=== PATIENT | male | born 1955 | race Caucasian/White ===

== ENCOUNTER 2017-03-18 18:19 | Observation (INO) | payer OTHER ==
--- NOTE | 2017-03-18 20:22 | ED ---
General Adult HPI - General Chief complaint: Extremity Problem,Nontraumatic Stated complaint: left leg swollen/discolored Time Seen by Provider: 03/18/17 20:12 Source: patient, RN notes reviewed Mode of arrival: wheelchair Limitations: no limitations - History of Present Illness Initial comments: Patient is 61-year-old male who presents emergency room today with a chief complaint of left lower swelling and redness. Patient does admit that he noticed this starting 3 days ago some pain in the left hip area. He states that he's noticed some swelling today. States he noticed some redness. He denies any specific injury or trauma. Denies any other complaints or symptoms. Patient denies any recent fever, chills, shortness of breath, chest pain, back pain, abdominal pain, nausea or vomiting, numbness or tingling, dysuria or hematuria, constipation or diarrhea, headaches or visual changes, or any other complaints. - Related Data Home Medications Medication Instructions Recorded Confirmed No Known Home Medications [No 03/18/17 03/18/17 Known Home Medications] Allergies Allergy/AdvReac Type Severity Reaction Status Date / Time No Known Allergies Allergy Verified 03/18/17 20:10 Review of Systems ROS Statement: Those systems with pertinent positive or pertinent negative responses have been documented in the HPI. ROS Other: All systems not noted in ROS Statement are negative. Past Medical History Past Medical History: Thyroid Disorder History of Any Multi-Drug Resistant Organisms: None Reported Past Surgical History: Hernia Repair, Orthopedic Surgery, Tonsillectomy Additional Past Surgical History / Comment(s): partial thyroidectomy Past Psychological History: No Psychological Hx Reported Smoking Status: Current every day smoker Past Alcohol Use History: Daily Past Drug Use History: None Reported General Exam - General Exam Comments Initial Comments: General: The patient is awake and alert, in no distress, and does not appear acutely ill. Eye: Pupils are equal, round and reactive to light, extra-ocular movements are intact. No nystagmus. There is normal conjunctiva bilaterally. No signs of icterus. Ears, nose, mouth and throat: There are moist mucous membranes and no oral lesions. Neck: The neck is supple, there is no tenderness or JVD. Cardiovascular: There is a regular rate and rhythm. No murmur, rub or gallop is appreciated. Respiratory: Lungs are clear to auscultation, respirations are non-labored, breath sounds are equal. No wheezes, stridor, rales, or rhonchi. Musculoskeletal/skin: Normal ROM, no tenderness. Strength 5/5. Sensation intact. Pulses equal bilaterally 2+. Mild redness to the left lower extremity with mild swelling. Neurological: A&O x 3. CN II-XII intact, There are no obvious motor or sensory deficits. Coordination appears grossly intact. Speech is normal. Psychiatric: Cooperative, appropriate mood & affect, normal judgment. Limitations: no limitations Course Vital Signs 03/18/17 03/18/17 18:29 21:27 Temperature 98.2 F Pulse Rate 96 85 Respiratory 18 18 Rate Blood Pressure 114/77 123/80 O2 Sat by Pulse 96 97 Oximetry Medical Decision Making - Medical Decision Making Patient reexamined at this time shows no signs of distress. Ultrasound POSITIVE FOR DVT. Case discussed with [facility] hospitalist who will start patient on Lovenox. - Lab Data Result diagrams: 03/18/17 20:30 03/18/17 20:30 Lab Results 03/18/17 03/18/17 Range/Units 20:30 20:30 WBC 8.0 (3.8-10.6) k/uL RBC 4.91 (4.30-5.90) m/uL Hgb 16.3 (13.0-17.5) gm/dL Hct 47.8 (39.0-53.0) % MCV 97.2 (80.0-100.0) fL MCH 33.3 (25.0-35.0) pg MCHC 34.2 (31.0-37.0) g/dL RDW 13.6 (11.5-15.5) % Plt Count 224 (150-450) k/uL Neutrophils % 66 % Lymphocytes % 21 % Monocytes % 4 % Eosinophils % 6 % Basophils % 0 % Neutrophils # 5.3 (1.3-7.7) k/uL Lymphocytes # 1.7 (1.0-4.8) k/uL Monocytes # 0.4 (0-1.0) k/uL Eosinophils # 0.5 (0-0.7) k/uL Basophils # 0.0 (0-0.2) k/uL Sodium 140 (137-145) mmol/L Potassium 4.0 (3.5-5.1) mmol/L Chloride 107 (98-107) mmol/L Carbon Dioxide 23 (22-30) mmol/L Anion Gap 10 mmol/L BUN 22 H (9-20) mg/dL Creatinine 1.31 H (0.66-1.25) mg/dL Est GFR (MDRD) Af Amer >60 (>60 ml/min/1.73 sqM) Est GFR (MDRD) Non-Af 56 (>60 ml/min/1.73 sqM) Glucose 153 H (74-99) mg/dL Calcium 9.4 (8.4-10.2) mg/dL Total Bilirubin 0.7 (0.2-1.3) mg/dL AST 24 (17-59) U/L ALT 37 (21-72) U/L Alkaline Phosphatase 87 (38-126) U/L Total Protein 6.8 (6.3-8.2) g/dL Albumin 3.9 (3.5-5.0) g/dL Disposition Clinical Impression: DVT (deep venous thrombosis) Disposition: ADMITTED IP TO THIS [facility] Condition: Stable Referrals: Nonstaff,Physician [Primary Care Provider] - 1-2 days Time of Disposition: 21:45
[2017-03-18 20:41] LABS: Basophils % (A) 0 %; CH 33.6; CHCM 34.8; Eosinophils # (A) 0.5 k/uL (0-0.7); Eosinophils % (A) 6 %; HCT 47.8 % (39.0-53.0); HDW 3.02; HGB 16.3 gm/dL (13.0-17.5); Luc # (Auto) 0.13; Luc % (Auto) 2; Lymphocytes # (A) 1.7 k/uL (1.0-4.8); Lymphocytes % (A) 21 %; MCH 33.3 pg (25.0-35.0); MCHC 34.2 g/dL (31.0-37.0); MCV 97.2 fL (80.0-100.0); Mean Platelet Volume 6.5; Monocytes # (A) 0.4 k/uL (0-1.0); Monocytes % (A) 4 %; Neutrophils # (A) 5.3 k/uL (1.3-7.7); Neutrophils % (A) 66 %; RBC 4.91 m/uL (4.30-5.90); RDW 13.6 % (11.5-15.5); WBC (Perox) 7.67
[2017-03-18 21:00] LABS: ALT 37 U/L (21-72); AST 24 U/L (17-59); Alkaline Phosphatase 87 U/L (38-126); Anion Gap 10 mmol/L; Blood Urea Nitrogen 22 mg/dL (9-20); Calcium 9.4 mg/dL (8.4-10.2); Carbon Dioxide 23 mmol/L (22-30); Chloride 107 mmol/L (98-107); Glucose 153 mg/dL (74-99); Non-African American GFR(MDRD) 56 (>60 ml/min/1.73 sqM); Sodium 140 mmol/L (137-145); Total Bilirubin 0.7 mg/dL (0.2-1.3); Total Protein 6.8 g/dL (6.3-8.2)
--- NOTE | 2017-03-18 21:17 | US ---
EXAMINATION TYPE: US venous doppler duplex LE LT DATE OF EXAM: 03/18/2017 9:00 PM COMPARISON: NONE CLINICAL HISTORY: Pain. Left leg edema SIDE PERFORMED: TECHNIQUE: The lower extremity deep venous system is examined utilizing real time linear array sonog chaparrita with graded compression, doppler sonography and color-flow sonography. VESSELS IMAGED: External Iliac Vein (EIV) Common Femoral Vein Deep Femoral Vein Greater Saphenous Vein * Femoral Vein Popliteal Vein Small Saphenous Vein * Proximal Calf Veins (* superficial vessels) Left Leg: Positive for DVT Positive DVT left leg Greater Saphenous vein, Common Femoral vein, Femoral vein and Popliteal vein. IMPRESSION: There is deep venous thrombosis in the left leg involving the femoral and popliteal vein. This appears to be acute thrombosis.
[2017-03-18] MEDS ORDERED: HEPARIN SODIUM,PORCINE 5,000 UNIT/ML 1 ML VIAL IV STA (22:20)
[2017-03-18] MEDS: HEPARIN SODIUM,PORCINE/D5W PMX 25,000 UNIT in DEXTROSE/WATER 1 500ML.BAG IV SCH (22:44)
[2017-03-18] MEDS ORDERED: ACETAMINOPHEN TAB 325 MG TAB PO PRN (23:12)
--- NOTE | 2017-03-18 23:29 | P.HPIM ---
History of Present Illness H&P Date: 03/18/17 Chief Complaint: Left groin and hip and leg pain The patient is a 61-year-old male with a past history of smoking who presents to the ER with a significant other by private vehicle complaining of left groin and hip and posterior leg pain for the last 2 days described as moderate crampy throbbing radiating from the groin to the posterior leg and popliteal area with associated redness of the left lower extremity, he he denies any subjective fevers chills or night sweats shortness of breath or cough and denies any posterior calf pain. He denies any prolonged travel greater than 6 hours, denies any recent trauma or fractures. He does report a history of a younger brother who is approximately a year younger that had possible clots and subsequent thrombophlebitis. In the ER he had a left lower extremity ultrasound which was consistent with a l left greater saphenous , eft common femoral, femoral and popliteal vein DVT, he was subsequently recommended for admission and started on heparin in the ER. Creatinine was elevated at 1.33 Review of Systems All other 14 point review of systems negative except per HPI Past Medical History Past Medical History: Thyroid Disorder History of Any Multi-Drug Resistant Organisms: None Reported Past Surgical History: Hernia Repair, Orthopedic Surgery, Tonsillectomy Additional Past Surgical History / Comment(s): partial thyroidectomy Past Psychological History: No Psychological Hx Reported Smoking Status: Current every day smoker Past Alcohol Use History: Daily Past Drug Use History: None Reported Medications and Allergies Home Medications Medication Instructions Recorded Confirmed Type No Known Home Medications [No 03/18/17 03/18/17 History Known Home Medications] Allergies Allergy/AdvReac Type Severity Reaction Status Date / Time No Known Allergies Allergy Verified 03/18/17 20:10 Physical Exam Vitals: Vital Signs Temp Pulse Resp BP Pulse Ox 03/18/17 22:47 80 18 131/83 97 03/18/17 21:27 85 18 123/80 97 03/18/17 18:29 98.2 F 96 18 114/77 96 Intake and Output 03/18/17 03/18/17 03/19/17 14:59 22:59 06:59 Other: Weight 90.718 kg Patient Weight 03/19/17 06:59 Weight 90.718 kg Constitutional: No acute distress, conversant, pleasant Eyes: Anicteric sclerae, moist conjunctiva, no lid-lag, PERRLA ENMT: NC/AT,Oropharynx clear, no erythema, exudates Neck:Supple, FROM, no masses, or JVD, No carotid bruits; No thyromegaly Lungs: Clear to auscultation, Clear to percussion, Normal respiratory effort, no accessory muscle use Cardiovascular: Heart regular in rate and rhythm, No murmurs, gallops, or rubs no peripheral edema Abdominal: Soft Nontender, nom distended, no guarding, no rebound or rigidity, Normoactive bowel sounds No hepatomegaly, No splenomegaly, No palpable mass No abdominal wall hernia noted Skin: Normal temperature, tone, texture, turgor, No induration No subcutaneous nodules, No rash, lesions, No ulcers Extremities:No digital cyanosis No clubbing, Pedal pulses intact and symmetrical Radial pulses intact and symmetrical Normal gait and station, posterior thigh and groin pain on on active movement, with noted mild erythema of the left lower extremity. Psychiatric: Alert and oriented to person, place and time, Appropriate affect Intact judgement Neuro: Muscles Strength 5/5 in all 4 extremities, Sensation to light touch grossly present throughout, Cranial nerves II-XII grossly intact. No focal sensory deficits Results CBC & Chem 7: 03/18/17 20:30 03/18/17 20:30 Labs: Abnormal Lab Results - Last 24 Hours (Table) 03/18/17 Range/Units 20:30 BUN 22 H (9-20) mg/dL Creatinine 1.31 H (0.66-1.25) mg/dL Glucose 153 H (74-99) mg/dL Assessment and Plan (1) DVT (deep venous thrombosis) Status: Acute (2) MADONNA (acute kidney injury) Status: Acute (3) Smoking Status: Acute Plan: The patient is placed on observation anticipated less than two midnight stay with new onset left lower extremity DVT, given his history we'll order hypercoagulable workup with protein C, protein S, antithrombin III and factor V 5 Leyden deficiency. We'll continue the heparin drip until the patient is transitioned to oral anticoagulation tomorrow. Continue to follow heparin protocol. Initiated on IV fluid for possible MADONNA recheck Creatinine in the am We'll continue to follow his clinical course Time with Patient: Greater than 30
[2017-03-18] MEDS ORDERED: SODIUM CHLORIDE 0.9% 1,000 ML IV ONE (23:33)
[2017-03-19 00:14] VITALS: BMI 31.3
[2017-03-19] MEDS: NICOTINE 21MG/24HR PATCH TRANSDERM SCH ×2 (01:16→08:25)
[2017-03-19] MEDS: SODIUM CHLORIDE 0.9% 1,000 ML IV SCH ×3 (01:16→21:07)
[2017-03-19 07:06] LABS: Basophils % (A) 1 %; CH 34.6; CHCM 35.2; Eosinophils # (A) 0.5 k/uL (0-0.7); Eosinophils % (A) 7 %; HCT 46.8 % (39.0-53.0); HGB 15.6 gm/dL (13.0-17.5); Luc % (Auto) 1; Lymphocytes # (A) 1.8 k/uL (1.0-4.8); Lymphocytes % (A) 24 %; MCHC 33.4 g/dL (31.0-37.0); MCV 98.8 fL (80.0-100.0); Mean Platelet Volume 7.2; Monocytes # (A) 0.4 k/uL (0-1.0); Monocytes % (A) 5 %; Neutrophils # (A) 4.6 k/uL (1.3-7.7); Neutrophils % (A) 62 %; RBC 4.74 m/uL (4.30-5.90); RDW 14.4 % (11.5-15.5); WBC 7.4 k/uL (3.8-10.6); WBC (Perox) 7.15
[2017-03-19 07:08] LABS: INR 1.1 (<1.2); Prothrombin Time 11.4 sec (9.0-12.0)
[2017-03-19 07:17] LABS: AST 36 U/L (17-59); Alkaline Phosphatase 69 U/L (38-126); Anion Gap 10 mmol/L; Blood Urea Nitrogen 19 mg/dL (9-20); Calcium 8.9 mg/dL (8.4-10.2); Carbon Dioxide 25 mmol/L (22-30); Chloride 109 mmol/L (98-107); Glucose 109 mg/dL (74-99); Non-African American GFR(MDRD) 58 (>60 ml/min/1.73 sqM); Sodium 144 mmol/L (137-145); Total Protein 6.7 g/dL (6.3-8.2)
[2017-03-19 07:46] LABS: ALT 32 U/L (21-72); Potassium 4.8 mmol/L (3.5-5.1)
[2017-03-19] MEDS: PANTOPRAZOLE 40 MG TABLET PO SCH (08:25)
[2017-03-19] MEDS: HEPARIN SODIUM,PORCINE/D5W PMX 25,000 UNIT in DEXTROSE/WATER 1 500ML.BAG IV SCH (14:30)
[2017-03-19] MEDS: oxyCODONE-APAP 5-325MG 1 EACH TAB PO PRN (15:03)
[2017-03-19] MEDS ORDERED: RIVAROXABAN 15 MG TAB PO STA (18:35)
--- NOTE | 2017-03-19 18:41 | P.DS ---
Providers Date of admission: 03/18/17 23:12 Expected date of discharge: 03/19/17 Attending physician: Roger Floyd MD Consults: 03/19/17 09:28 Consult Physician Routine Consulting Provider: Jomar Nelson Consult Reason/Comments: left DVT Do you want consulting provider notified?: Yes Dr Omar Summers Left DVT , unprovoked Consider May Grijalva Syndrome Primary care physician: Physician Nonstaff - Discharge Diagnosis(es) (1) DVT (deep venous thrombosis) Current Visit: Yes Status: Acute Hospital Course: Admitted for painful swelling of the left lower extremities from the groin and below for 3 days before admission. Venous duplex study showed an acute deep venous thrombosis involving the left leg. Started on IV heparin and switched to xarelto. No symptoms to suggest pulmonary embolism vital signs were stable and patient was discharged on oral anticoagulation with Xarelto Vascular surgery consult Dr. Loi rubin was obtained to assure op f/u and r/ o May Grijalva syndrome. And cleared the patient for discharge Pertinent Studies: Venous duplex study of the left lower extremity showed a fresh blood clot involving the left common femoral vein in the femoral vein and greater saphenous vein and popliteal veins Procedures: None Patient Condition at Discharge: Stable Plan - Discharge Summary New Discharge Prescriptions: No Action No Known Home Medications [No Known Home Medications] Discharge Medication List No Known Home Medications [No Known Home Medications] 03/18/17 [History] Follow up Appointment(s)/Referral(s): Nonstaff,Physician [Primary Care Provider] - 1-2 days Jomar Nelson MD [STAFF PHYSICIAN] - 4 Weeks Patient Instructions/Handouts: Deep Venous Thrombosis (DC) Activity/Diet/Wound Care/Special Instructions: Off work till Friday No driving using left leg Return to ER if acute SOB or syncope or chest pains Care Plan Goals (MU): anticoagulation with Xarelto for 3-6 months Discharge Disposition: HOME SELF-CARE Pending Studies Pending Results: Hypercoagulable studies results done for unprovoked DVT
--- NOTE | 2017-03-19 20:51 | CONS ---
CONSULTATION This gentleman is a 61-year-old white male who has been admitted with deep vein thrombosis of the left leg. The patient had sudden onset of pain a few days ago and came to the emergency room. An ultrasound of the leg showed a femoral-popliteal DVT, acute in nature. No history of shortness of breath. No chest pain. The patient has been admitted and patient is on anticoagulation. PAST HISTORY: The patient has history of thyroid disorder. SURGICAL HISTORY: Patient had a hernia repair and left knee surgery done in the past. EXAMINATION: Patient was seen in his room. NECK: Supple. Trachea central. CHEST: Clear to auscultation. First and second heart sounds are normal. ABDOMEN: Soft, nontender. Femoral pulses are palpable. Patient has swelling of the left lower extremity. No vascular compromise noted. RECOMMENDATION: Continue with anticoagulation, DRAKE cummings knee-high. Will follow with you. If there is any contraindication, will consider placing a filter. The patient is a hypercoagulation , since patient has a family history of DVT. If the patient goes home. I will follow in my office in 2 weeks. MMODL / IJN: [id number] /
[2017-03-20] MEDS: SODIUM CHLORIDE 0.9% 1,000 ML IV SCH ×3 (01:49→17:40)
[2017-03-20 02:29] VITALS: RESP 16
[2017-03-20] MEDS: HEPARIN SODIUM,PORCINE/D5W PMX 25,000 UNIT in DEXTROSE/WATER 1 500ML.BAG IV SCH (05:19)
[2017-03-20] MEDS: PANTOPRAZOLE 40 MG TABLET PO SCH (08:10)
[2017-03-20] MEDS: RIVAROXABAN 15 MG TAB PO SCH ×2 (08:10→17:35)
[2017-03-20] MEDS: NICOTINE 21MG/24HR PATCH TRANSDERM SCH (08:10)
[2017-03-20 12:19] LABS: Protein C (Activity) 90 % (70 - 130)
[2017-03-20 12:20] LABS: Protein S (Activity) 146 % (65 - 140)
[2017-03-20 16:02] VITALS: BP 132/90; PULSE 96; TEMP 97.2
--- NOTE | 2017-03-20 16:22 | PN ---
PROGRESS NOTE This gentleman came with swelling of the left lower extremity. Patient has a DVT of the femoral popliteal left leg. No shortness of breath or chest pain. The patient was on heparin and switched to Xarelto by Internal Medicine. On examination today, femoral and dorsal pedis pulses present. Patient has less swelling than yesterday. The patient has DRAKE hose. Plan is to continue the DRAKE hose and Xarelto. I will see him in my office on . MMROMAN / MYRAN: [id number] /
[2017-03-20] MEDS: oxyCODONE-APAP 5-325MG 1 EACH TAB PO PRN (17:35)
--- NOTE | 2017-03-20 19:05 | P.PN ---
Subjective Principal diagnosis: left leg DVT Admitted for left le dvt vasccular sx consult appreciated he kept patient last night and leg swelling is less on elastic stocking No chest pain or sob Systemic review : Negative Objective - Vital Signs Vital signs: Vital Signs Temp 97.2 F L 03/20/17 15:00 Pulse 96 03/20/17 15:00 Resp 16 03/20/17 15:00 BP 132/90 03/20/17 15:00 Pulse Ox 96 03/20/17 15:00 Intake & Output 03/19/17 03/20/17 03/20/17 18:59 06:59 18:59 Intake Total 4971.747 3952.764 Balance 2294.364 2044.764 Weight 90.718 kg Intake: IV 500 960 Sodium Chloride 0.9% 1, 500 960 000 ml @ 120 mls/hr IV . Q8H20M MAY Rx#:[id number] Intake, IV Titration 500.000 483.764 Amount Heparin Sodium,Porcine/ 500.000 483.764 D5w Pmx 25,000 unit In Dextrose/Water 1 500ml. bag @ 18 UNITS/KG/HR 32. 65 mls/hr IV .[id number] MAY Rx#:[id number] Oral 180 400 Other: Voiding Method Toilet # Voids 3 3 3 - Constitutional General appearance: Present: cooperative, no acute distress - EENT Eyes: Present: anicteric sclerae, PERRLA ENT: Present: NA/AT, normal oropharynx Ears: bilateral: normal - Neck Neck: Present: normal ROM. Absent: lymphadenopathy, other, rigidity, stridor, thyromegaly Carotids: bilateral: upstroke normal, bruit absent Thyroid: negative: normal size, enlarged, firm, nodule - Respiratory Respiratory: bilateral: CTA, negative: diminished, dullness, rales, rhonchi, wheezing - Cardiovascular Rhythm: regular Heart sounds: normal: S1, S2 Abnormal Heart Sounds: Absent: systolic murmur, diastolic murmur, rub, S3 Gallop , S4 Gallop, click, other - Gastrointestinal General gastrointestinal: Present: normal bowel sounds, soft. Absent: absent bowel sounds, decreased bowel sounds, distended, hepatomegaly, hyperactive bowel sounds, organomegaly, rigid, scaphoid, splenomegaly, tenderness, umbilical hernia, ventral hernia - Integumentary Integumentary Comment(s): left leg swelling - Neurologic Neurologic: Present: CNII-XII intact, focal deficits - Musculoskeletal Musculoskeletal: Present: gait normal, strength equal bilaterally - Psychiatric Psychiatric: Present: A&O x's 3, appropriate affect, intact judgment & insight - Labs CBC & Chem 7: 03/19/17 06:47 03/19/17 06:47 Labs: Abnormal Lab Results - Last 24 Hours (Table) 03/19/17 03/20/17 Range/Units 06:47 06:36 APTT 52.2 H (22.0-30.0) sec Protein S Activity 146 H (65 - 140) % Microbiology - Last 24 Hours (Table) 03/18/17 20:30 Blood Culture - Preliminary Blood No Growth after 24 hours Assessment and Plan (1) Left leg DVT Narrative/Plan: leg swelling no embolization elastic stocking xoralto therapy VBascular sx consult and f/u ok for discharge today Status: Acute Plan: discharge today Time with Patient: Less than 30
== END 2017-03-20 18:00 | disposition home or self-care (01) ==
LOC: EC 18:19 → 3SUR 23:12
PROVIDERS: ADMIT Family Medicine; ATTEND Family Medicine
DX: I82.432 Acute embolism and thrombosis of left popliteal vein (principal); N17.9 Acute kidney failure, unspecified; E89.0 Postprocedural hypothyroidism; I82.412 Acute embolism and thrombosis of left femoral vein; F17.200 Nicotine dependence, unspecified, uncomplicated
CPT/HCPCS: 96376 ×2; 96366; 96365; 99284; 36415; 85303; 85306; 80053 ×2; 81241; 85025 ×2; 85610; 85730 ×2; 87040; 85300; 93971; G0378 ×3; S4990 ×2; J1644 ×4; 96361

== ENCOUNTER → 2023-11-21 | Outpatient (CLI) | payer MEDICARE ==
--- NOTE | 2023-11-21 14:09 | CTL ---
EXAMINATION TYPE: CT Low Dose Lung DATE OF EXAM ORDERED: 11/21/2023 History: Lung cancer screening CT DLP: 79.[address] CTDI: 2.2 mGy Automated exposure control for dose reduction was used. Comparison: None TECHNIQUE: Low dose computed tomography scan was performed through the chest at 1 mm thick sections and reconstructed images in multiple planes at 1 mm and [address] DIAGNOSTIC QUALITY: Satisfactory FINDINGS: There is no suspicious lung mass or nodule The lungs are clear and there is no abnormal consolidation or interstitial density. There is no mediastinal, hilar or axillary adenopathy. There is no pleural effusion, pleural thickening or pneumothorax. No focal osseous lesions are seen. Limited scans the upper abdomen reveals no gross adenopathy. IMPRESSION: 1. BI-RADS Category 1 negative. Continue routine screening at yearly intervals. 2. No acute cardiopulmonary disease.
== END | disposition home or self-care (01) ==
LOC: RADCTMAIN 13:19
PROVIDERS: ATTEND Family Medicine
DX: Z12.2 Encounter for screening for malignant neoplasm of respiratory organs (principal); F17.210 Nicotine dependence, cigarettes, uncomplicated
CPT/HCPCS: 71271

== ENCOUNTER 2024-03-11 17:04 | Emergency (ER) | payer MEDICARE ==
[2024-03-11 17:08] VITALS: RESP 17
--- NOTE | 2024-03-11 17:25 | ED ---
Skin/Abscess/FB HPI - General Source: patient, RN notes reviewed Mode of arrival: ambulatory Limitations: no limitations <Kimi Delatorre - Last Filed: 03/11/24 20:08> <Rubio España - Last Filed: 03/11/24 20:30> - General Chief complaint: Skin/Abscess/Foreign Body Stated complaint: infection Time Seen by Provider: 03/11/24 17:22 - History of Present Illness Initial comments: 68-year-old male with history of cirrhosis presenting to the ER with chief complaint of right leg redness x 1 day. States over the past day he has been having tenderness and redness on his right lower rivas. Denies trauma or injury to the area. He is tolerating orals well. He has a history of a DVT in his left leg, however is no longer on blood thinners. Denies other significant medical history. (Kimi Delatorre) - Related Data Home Medications Medication Instructions Recorded Confirmed Naproxen Sodium [Aleve] 220 mg PO DAILY PRN 03/11/24 03/11/24 Previous Rx's Medication Instructions Recorded Cephalexin [Keflex] 500 mg PO Q6HR #40 cap 03/11/24 Sulfamethox-Tmp 800-160Mg [Bactrim 1 each PO Q12HR #20 tab 03/11/24 Ds] Allergies Allergy/AdvReac Type Severity Reaction Status Date / Time No Known Allergies Allergy Verified 03/11/24 20:04 Review of Systems ROS Other: All systems not noted in ROS Statement are negative. <Kimi Delatorre - Last Filed: 03/11/24 20:08> ROS Other: All systems not noted in ROS Statement are negative. <Rubio España - Last Filed: 03/11/24 20:30> ROS Statement: Those systems with pertinent positive or pertinent negative responses have been documented in the HPI. Past Medical History Past Medical History: Deep Vein Thrombosis (DVT), Pneumonia, Thyroid Disorder History of Any Multi-Drug Resistant Organisms: None Reported Past Surgical History: Hernia Repair, Orthopedic Surgery, Tonsillectomy Additional Past Surgical History / Comment(s): partial thyroidectomy, knee surgery Past Anesthesia/Blood Transfusion Reactions: No Reported Reaction Past Psychological History: No Psychological Hx Reported Smoking Status: Current every day smoker Past Alcohol Use History: Daily Past Drug Use History: None Reported - Past Family History Father Family Medical History: Cancer Mother Family Medical History: COPD <Kimi Delatorre - Last Filed: 03/11/24 20:08> General Exam Limitations: no limitations General appearance: alert, in no apparent distress Head exam: Present: atraumatic, normocephalic, normal inspection Eye exam: Present: normal appearance, PERRL, EOMI. Absent: scleral icterus, conjunctival injection, periorbital swelling Respiratory exam: Present: normal lung sounds bilaterally. Absent: respiratory distress, wheezes, rales, rhonchi, stridor Cardiovascular Exam: Present: regular rate, normal rhythm, normal heart sounds. Absent: systolic murmur, diastolic murmur, rubs, gallop, clicks Right Knee exam: Present: normal inspection, full ROM. Absent: tenderness, swelling Lower Leg exam: Present: full ROM, tenderness, swelling, erythema. Absent: normal inspection (Diffuse erythema and tenderness on anterior right lower leg with mild edema, no purulence. DP pulses and sensation intact. No calf tenderness), abrasion, laceration, deformity Ankle exam: Present: normal inspection, full ROM, swelling (Mild edema). Abs ent: tenderness Foot/Toe exam: Present: normal inspection, full ROM. Absent: tenderness, swelling Neurovascular tendon exam: Present: no vascular compromise. Absent: pulse deficit, abnormal cap refill, sensory deficit Neurological exam: Present: alert, oriented X3 Psychiatric exam: Present: normal affect, normal mood Skin exam: Present: warm, dry, intact, normal color. Absent: rash <Kimi Delatorre - Last Filed: 03/11/24 20:08> Course Vital Signs 03/11/24 17:06 Temperature 98.2 F Pulse Rate 99 Respiratory 17 Rate Blood Pressure 127/81 O2 Sat by Pulse 99 Oximetry Medical Decision Making - Lab Data Result diagrams: 03/11/24 17:48 03/11/24 17:48 <Malorie Delatorrena - Last Filed: 03/11/24 20:08> - Lab Data Result diagrams: 03/11/24 17:48 03/11/24 17:48 <Rubio España - Last Filed: 03/11/24 20:30> - Medical Decision Making Was pt. sent in by a medical professional or institution (, PA, MINIATURE SET BUILDER, urgent care, hospital, or residential...) When possible be specific @ -No Did you speak to anyone other than the patient for history (EMS, parent, family, police, friend...)? What history was obtained from this source @ -Patient's supplemented history Did you review nursing and triage notes (agree or disagree)? Why? @ -I reviewed and agree with nursing and triage notes Were old charts reviewed (outside hosp., previous admission, EMS record, old EKG, old radiological studies, urgent care reports/EKG's, residential records)? Report findings @ -No old charts were reviewed Differential Diagnosis (chest pain, altered mental status, abdominal pain women, abdominal pain men, vaginal bleeding, weakness, fever, dyspnea, syncope, headache, dizziness, GI bleed, back pain, seizure, CVA, palpatations, mental health, musculoskeletal)? @ -Differential Musculoskeletal Muscular strain, contusion, ligament sprain, fracture, arthritis, septic arthritis, bursitis, cellulitis, muscle spasm, nerve compression, DVT, arterial occlusion, herpes zoster, electrolyte abnormality, tumor.... This is not meant to be in all inclusive list EKG interpreted by me (3pts min.). @ -None X-rays interpreted by me (1pt min.). @ -None done CT interpreted by me (1pt min.). @ -None done U/S interpreted by me (1pt. min.). @ -Ultrasound right lower extremity negative for DVT What testing was considered but not performed or refused? (CT, X-rays, U/S, labs)? Why? @ -None What meds were considered but not given or refused? Why? @ -None Did you discuss the management of the patient with other professionals (professionals i.e. , PA, MINIATURE SET BUILDER, lab, RT, psych nurse, social services specialist, cloth doffer, teacher, loss prevention officer, case liner)? Give summary @ -No Was smoking cessation discussed for >3mins.? @ -No Was critical care preformed (if so, how long)? @ -No Were there social determinants of health that impacted care today? How? (Homelessness, low income, unemployed, alcoholism, drug addiction, tr ansportation, low edu. Level, literacy, decrease access to med. care, [place] [facility], rehab)? @ -No Was there de-escalation of care discussed even if they declined (Discuss DNR or withdrawal of care, Hospice)? DNR status @ -No What co-morbidities impacted this encounter? (DM, HTN, Smoking, COPD, CAD, Cancer, CVA, ARF, Chemo, Hep., AIDS, mental health diagnosis, sleep apnea, morbid obesity)? @ -None Was patient admitted / discharged? Hospital course, mention meds given and route, prescriptions, significant lab abnormalities, going to OR and other pertinent info. @ -Patient was discharged. This is a 68-year-old male presenting with right lower extremity redness x 1 day. Patient is afebrile, heart rate 99 bpm. On physical examination, there is diffuse erythema and warmth on anterior lower right leg with no purulence. Neurovascularly intact. Ultrasound right lower extremity was negative for DVT. CBC, CMP, lactic, CRP remarkable for CRP 34.9. White blood cell count is 10. Findings discussed with patient and . I offered admission for IV antibiotics, however patient prefers discharge with oral antibiotics with strict return precautions. I believe this is reasonable at this time as patient is afebrile and white blood cell count is within normal limits. Strict return precautions were discussed with patient as well as supportive care. Prescribed Keflex and Bactrim. Case was discussed with my ED attending Dr. España. Patient discharged in stable condition. Undiagnosed new problem with uncertain prognosis? @ -No Drug Therapy requiring intensive monitoring for toxicity (Heparin, Nitro, Insulin, Cardizem)? @ -No Were any procedures done? @ -No Diagnosis/symptom? @ -Cellulitis right lower extremity Acute, or Chronic, or Acute on Chronic? @ -Acute Uncomplicated (without systemic symptoms) or Complicated (systemic symptoms)? @ -Uncomplicated Side effects of treatment? @ -No Exacerbation, Progression, or Severe Exacerbation? @ -No Poses a threat to life or bodily function? How? (Chest pain, [place], [place], pneumonia, PE, COPD, DKA, ARF, appy, cholecystitis, CVA, Diverticulitis, Homicidal, Suicidal, threat to staff... and all critical care pts) @ -None at this time (Kimi Delatorre) - Lab Data Lab Results 03/11/24 03/11/24 03/11/24 Range/Units 17:48 17:48 17:48 WBC 10.0 (3.8-10.6) k/uL RBC 4.92 (4.30-5.90) m/uL Hgb 16.8 (13.0-17.5) gm/dL Hct 49.4 (39.0-53.0) % MCV 100.4 H (80.0-100.0) fL MCH 34.1 (25.0-35.0) pg MCHC 34.0 (31.0-37.0) g/dL RDW 12.7 (11.5-15.5) % Plt Count 178 (150-450) k/uL MPV 7.1 Neutrophils % 92 % Lymphocytes % 5 % Monocytes % 2 % Eosinophils % 0 % Basophils % 0 % Neutrophils # 9.2 H (1.3-7.7) k/uL Lymphocytes # 0.5 L (1.0-4.8) k/uL Monocytes # 0.2 (0-1.0) k/uL Eosinophils # 0.0 (0-0.7) k/uL Basophils # 0.0 (0-0.2) k/uL Sodium 136 L (137-145) mmol/L Potassium 4.2 (3.5-5.1) mmol/L Chloride 101 (98-107) mmol/L Carbon Dioxide 30 (22-30) mmol/L Anion Gap 5 mmol/L BUN 32 H (9-20) mg/dL Creatinine 1.62 H (0.66-1.25) mg/dL Est GFR (CKD-EPI)AfAm 50 (>60 ml/min/1.73 sqM) Est GFR (CKD-EPI)NonAf 43 (>60 ml/min/1.73 sqM) Glucose 117 H (74-99) mg/dL Plasma Lactic Acid Shukri 1.2 (0.7-2.0) mmol/L Calcium 9.2 (8.4-10.2) mg/dL Total Bilirubin 1.4 H (0.2-1.3) mg/dL AST 35 (17-59) U/L ALT 35 (4-49) U/L Alkaline Phosphatase 60 (38-126) U/L C-Reactive Protein 34.9 H (<1.0) mg/dL Total Protein 6.9 (6.3-8.2) g/dL Albumin 4.3 (3.5-5.0) g/dL Disposition Is patient prescribed a controlled substance at d/c from ED?: No Time of Disposition: 20:05 <Kimi Delatorre - Last Filed: 03/11/24 20:08> <Rubio España - Last Filed: 03/11/24 20:30> Clinical Impression: Cellulitis of right lower leg Disposition: HOME SELF-CARE Condition: Stable Instructions (If sedation given, give patient instructions): Cellulitis (ED) Additional Instructions: Take Keflex and Bactrim as prescribed. Follow-up with PCP in 3 to 5 days for reevaluation. Please return to the Emergency Department if symptoms worsen or any other concerns. Prescriptions: Sulfamethox-Tmp 800-160Mg [Bactrim Ds] 1 each PO Q12HR #20 tab Cephalexin [Keflex] 500 mg PO Q6HR #40 cap Referrals: Chris Velez MD [Primary Care Provider] - 1-2 days
[2024-03-11 18:02] LABS: Basophils % (A) 0 %; Eosinophils % (A) 0 %; HCT 49.4 % (39.0-53.0); HGB 16.8 gm/dL (13.0-17.5); Lymphocytes # (A) 0.5 k/uL (1.0-4.8); Lymphocytes % (A) 5 %; MCH 34.1 pg (25.0-35.0); MCV 100.4 fL (80.0-100.0); Mean Platelet Volume 7.1; Monocytes # (A) 0.2 k/uL (0-1.0); Monocytes % (A) 2 %; Neutrophils # (A) 9.2 k/uL (1.3-7.7); Neutrophils % (A) 92 %; Platelet Count 178 k/uL (150-450); RBC 4.92 m/uL (4.30-5.90); RDW 12.7 % (11.5-15.5)
[2024-03-11 18:21] LABS: ALT 35 U/L (4-49); AST 35 U/L (17-59); African American GFR (CKD) 50 (>60 ml/min/1.73 sqM); Albumin 4.3 g/dL (3.5-5.0); Alkaline Phosphatase 60 U/L (38-126); Anion Gap 5 mmol/L; Blood Urea Nitrogen 32 mg/dL (9-20); Calcium 9.2 mg/dL (8.4-10.2); Carbon Dioxide 30 mmol/L (22-30); Chloride 101 mmol/L (98-107); Glucose 117 mg/dL (74-99); Non-African American GFR(CKD) 43 (>60 ml/min/1.73 sqM); Potassium 4.2 mmol/L (3.5-5.1); Sodium 136 mmol/L (137-145); Total Bilirubin 1.4 mg/dL (0.2-1.3); Total Protein 6.9 g/dL (6.3-8.2)
--- NOTE | 2024-03-11 18:25 | US ---
EXAMINATION TYPE: US venous doppler duplex LE RT DATE OF EXAM: 03/11/2024 5:22 PM COMPARISON: NONE CLINICAL INDICATION: Male, 68 years old with history of pain; Patient states redness in right calf, w arm to touch. Hx of DVT in left leg. Not on thinners SIDE PERFORMED: Right TECHNIQUE: The lower extremity deep venous system is examined utilizing real time linear array sonog chaparrita with graded compression, doppler sonography and color-flow sonography. VESSELS IMAGED: Common Femoral Vein Deep Femoral Vein Greater Saphenous Vein * Femoral Vein Popliteal Vein Small Saphenous Vein * Proximal Calf Veins (* superficial vessels) Right Leg: Appears negative for DVT today IMPRESSION: Grayscale, color doppler, spectral doppler imaging performed of the deep veins of the lo wer extremities. There is normal flow, compressibility, vascular waveforms. [facility], , 03/11/2024 6:23 PM
[2024-03-11 19:53] LABS: C Reactive Protein 34.9 mg/dL (<1.0)
[2024-03-11] MEDS: cefTRIAXone IN SWFI 1,000 MG/10 ML SYRINGE IVP STA (20:33)
[2024-03-11 20:51] VITALS: BP 117/75; PULSE 101; TEMP 100.5
== END 2024-03-11 20:51 | disposition home or self-care (01) ==
LOC: EC 17:04
CPT/HCPCS: 36415; 80053; 83605; 85025; 86140; 96374; 99283

== ENCOUNTER 2024-03-15 16:14 | Observation (INO) | payer MEDICARE ==
--- NOTE | 2024-03-15 16:26 | ED ---
Extremity Problem HPI - General Source: patient, RN notes reviewed Mode of arrival: ambulatory Limitations: no limitations <Tran Long - Last Filed: 03/15/24 16:25> <Dannie Obrien - Last Filed: 03/15/24 20:09> - General Stated complaint: leg infection Time Seen by Provider: 03/15/24 16:25 - History of Present Illness Initial comments: Quick note: 68-year-old male presented to ER with a chief complaint of right lower extremity swelling. Patient was seen here on for similar complaint. Patient was started on antibiotics. Patient had ultrasound done at that time which was negative for DVT. He states the pain has mildly improved but swelling is worse. Does report a history of DVTs. Denies any fevers or chills. (Tran Long) Patient dictation was produced using [employer] dictation software. please excuse any grammatical, word or spelling errors. Chief Complaint: 68-year-old male with worsening cellulitis History of Present Illness: Patient 68-year-old male presents to the emergency department 3 to 4 days of cellulitis symptoms. States that his initially symptoms began as pain and redness to the medial side of the foot. Started to spread. Patient was seen here in the emergency department 4 days ago given antibiotics and discharged. States that his symptoms had not improved in fact got worse. Does complain of some chills. The ROS documented in this emergency department record has been reviewed and confirmed by me. Those systems with pertinent positive or negative responses have been documented in the HPI. All other systems are other negative and/or noncontributory. (Dannie Obrien) - Related Data Home Medications Medication Instructions Recorded Confirmed Naproxen Sodium [Aleve] 220 mg PO DAILY PRN 03/11/24 03/11/24 Previous Rx's Medication Instructions Recorded Cephalexin [Keflex] 500 mg PO Q6HR #40 cap 03/11/24 Sulfamethox-Tmp 800-160Mg [Bactrim 1 each PO Q12HR #20 tab 03/11/24 Ds] Allergies Allergy/AdvReac Type Severity Reaction Status Date / Time No Known Allergies Allergy Verified 03/15/24 16:38 Review of Systems ROS Other: All systems not noted in ROS Statement are negative. <Tran Long - Last Filed: 03/15/24 16:25> ROS Other: All systems not noted in ROS Statement are negative. <Dannie Obrien - Last Filed: 03/15/24 20:09> ROS Statement: Those systems with pertinent positive or pertinent negative responses have been documented in the HPI. Past Medical History Past Medical History: Deep Vein Thrombosis (DVT), Pneumonia, Thyroid Disorder History of Any Multi-Drug Resistant Organisms: None Reported Past Surgical History: Hernia Repair, Orthopedic Surgery, Tonsillectomy Additional Past Surgical History / Comment(s): partial thyroidectomy, knee surgery Past Anesthesia/Blood Transfusion Reactions: No Reported Reaction Past Psychological History: No Psychological Hx Reported Smoking Status: Current every day smoker Past Alcohol Use History: Daily Past Drug Use History: None Reported - Past Family History Father Family Medical History: Cancer Mother Family Medical History: COPD <Tran Long - Last Filed: 03/15/24 16:25> General Exam <Tran Long - Last Filed: 03/15/24 16:25> <Dannie Obrien - Last Filed: 03/15/24 20:09> - General Exam Comments Initial Comments: Visual Physical Exam Vital signs reviewed General: Well-appearing, nontoxic, no acute distress. Head: Normocephalic, atraumatic Eyes: PERRLA, EOMI ENT: Airway patent Chest: Nonlabored breathing Skin: No visual rash, normal skin tone Neuro: Alert and oriented 3 Musculoskeletal: No gross abnormalities, erythematous and edematous right lower extremity (Tran Long) General: Well-appearing, nontoxic, no acute distress. Head: Normocephalic, atraumatic Eyes: PERRLA, EOMI ENT: Airway patent Chest: Nonlabored breathing Neuro: Alert and oriented 3 Musculoskeletal: No gross abnormalities Right lower extremity: Circumferential warmth and erythema around the right lower extremity. Erythema is blanching (Dannie Obrien) Course Vital Signs 03/15/24 16:33 Temperature 97.6 F Pulse Rate 90 Respiratory 18 Rate Blood Pressure 119/74 O2 Sat by Pulse 99 Oximetry Medical Decision Making <Tran Long - Last Filed: 03/15/24 16:25> - Lab Data Result diagrams: 03/15/24 17:23 03/15/24 17:23 <Jin Obriensstomasz Bob - Last Filed: 03/15/24 20:09> - Medical Decision Making I performed the quick note portion of this chart. Electronically signed by Tran Long PA-C (Tran Long) Was pt. sent in by a medical professional or institution (KIMO Dickerson, SLUBBER MACHINE OPERATOR, urgent care, hospital, or [place] [facility]...) When possible be specific @ -[No] Did you speak to anyone other than the patient for history (EMS, parent, family, police, friend...)? What history was obtained from this source @ -[No] Did you review nursing and triage notes (agree or disagree)? Why? @ -[I reviewed and agree with nursing and triage notes] Were old charts reviewed (outside hosp., previous admission, EMS record, old EKG, old radiological studies, urgent care reports/EKG's, [place] [facility] records)? Report findings @ -[No old charts were reviewed] Differential Diagnosis (chest pain, altered mental status, abdominal pain women, abdominal pain men, vaginal bleeding, musculoskeletal, weakness, fever, dyspnea, syncope, headache, dizziness, GI bleed, back pain, seizure, CVA, palpatations, mental health)? @ -Cellulitis, abscess, dermatitis EKG interpreted by me (3pts min.). @ -[None done] X-rays interpreted by me (1pt min.). @ -[None done] CT interpreted by me (1pt min.). @ -[None done] U/S interpreted by me (1pt. min.). @ -[None done] What testing was considered but not performed or refused? (CT, X-rays, U/S, labs)? Why? @ -[None] What meds were considered but not given or refused? Why? @ -[None] Was smoking cessation discussed for >3mins.? @ -[No] Were there social determinants of health that impacted care today? How? (Homelessness, low income, unemployed, alcoholism, drug addiction, transportation, low edu. Level, literacy, decrease access to med. care, halfway, rehab)? @ -[No] Was there de-escalation of care discussed even if they declined (Discuss DNR or withdrawal of care, Hospice)? DNR status @ -[No] What co-morbidities impacted this encounter? (DM, HTN, Smoking, COPD, CAD, Cancer, CVA, ARF, Chemo, Hep., AIDS, mental health diagnosis, sleep apnea, morbid obesity)? @ -[None] Was patient admitted / discharged? Hospital course, mention meds given and route, prescriptions, significant lab abnormalities, going to OR and other pertinent info. @ -68-year-old male presents emergency department with worsening right lower extremity cellulitis he was seen in the emergency department 4 days ago was offered admission with IV antibiotic treatment however he preferred discharge. Patient states that he has been on Keflex and his symptoms have not been improving. He does report associated constitutional symptoms.Vital signs upon arrival are within acceptable limits. Laboratory evaluation obtained. No leukocytosis. Labs otherwise unremarkable. Patient started vancomycin. Case discussed with hospitalist for admission. Infectious disease will be consulted Did you discuss the management of the patient with other professionals (professionals i.e. , PA, SLUBBER MACHINE OPERATOR, lab, RT, psych nurse, long term care social worker, criminal defense lawyer, teacher, naval gunfire liaison officer, case filler)? Give summary @ -See above Was critical care preformed (if so, how long)? @ -[No] Undiagnosed new problem with uncertain prognosis? @ -[No] Drug Therapy requiring intensive monitoring for toxicity (Heparin, Nitro, Insulin, Cardizem)? @ -[No] Were any procedures done? @ -[No] Diagnosis/symptom? Acute, or Chronic, or Acute on Chronic? Uncomplicated (without systemic symptoms) or Complicated (systemic symptoms)? @ -Right lower extremity cellulitis failed outpatient treatment Side effects of treatment? @ -[No] Exacerbation, Progression, or Severe Exacerbation? @ -[No] Poses a threat to life or bodily function? How? (Chest pain, [place], [place], pneumonia, PE, COPD, DKA, ARF, appy, cholecystitis, CVA, Diverticulitis, Homicidal, Suicidal, threat to staff... and all critical care pts) @ -Yes (Dannie Obrien) - Lab Data Lab Results 03/15/24 03/15/24 03/15/24 Range/Units 17:23 17:23 17:23 WBC 8.3 (3.8-10.6) k/uL RBC 4.75 (4.30-5.90) m/uL Hgb 15.7 (13.0-17.5) gm/dL Hct 48.1 (39.0-53.0) % MCV 101.2 H (80.0-100.0) fL MCH 33.1 (25.0-35.0) pg MCHC 32.7 (31.0-37.0) g/dL RDW 12.8 (11.5-15.5) % Plt Count 289 (150-450) k/uL MPV 7.4 Neutrophils % 80 % Lymphocytes % 13 % Monocytes % 4 % Eosinophils % 1 % Basophils % 1 % Neutrophils # 6.6 (1.3-7.7) k/uL Lymphocytes # 1.1 (1.0-4.8) k/uL Monocytes # 0.3 (0-1.0) k/uL Eosinophils # 0.1 (0-0.7) k/uL Basophils # 0.0 (0-0.2) k/uL Sodium 140 (137-145) mmol/L Potassium 4.1 (3.5-5.1) mmol/L Chloride 103 (98-107) mmol/L Carbon Dioxide 29 (22-30) mmol/L Anion Gap 8 mmol/L BUN 21 H (9-20) mg/dL Creatinine 1.20 (0.66-1.25) mg/dL Est GFR (CKD-EPI)AfAm 72 (>60 ml/min/1.73 sqM) Est GFR (CKD-EPI)NonAf 62 (>60 ml/min/1.73 sqM) Glucose 125 H (74-99) mg/dL Plasma Lactic Acid Shukri 1.3 (0.7-2.0) mmol/L Calcium 9.2 (8.4-10.2) mg/dL Total Bilirubin 1.3 (0.2-1.3) mg/dL AST 42 (17-59) U/L ALT 56 H (4-49) U/L Alkaline Phosphatase 101 (38-126) U/L Total Protein 7.1 (6.3-8.2) g/dL Albumin 4.2 (3.5-5.0) g/dL Disposition <Tran Long - Last Filed: 03/15/24 16:25> Decision Time: 20:08 <Dannie Obrien Filed: 03/15/24 20:09> Clinical Impression: Cellulitis Disposition: ADMITTED IP TO THIS HOSP Condition: Fair Referrals: Chris Velez MD [Primary Care Provider] - 1-2 days
[2024-03-15 17:39] LABS: Basophils % (A) 1 %; Eosinophils # (A) 0.1 k/uL (0-0.7); Eosinophils % (A) 1 %; HCT 48.1 % (39.0-53.0); HGB 15.7 gm/dL (13.0-17.5); Lymphocytes # (A) 1.1 k/uL (1.0-4.8); Lymphocytes % (A) 13 %; MCH 33.1 pg (25.0-35.0); MCHC 32.7 g/dL (31.0-37.0); MCV 101.2 fL (80.0-100.0); Mean Platelet Volume 7.4; Monocytes # (A) 0.3 k/uL (0-1.0); Monocytes % (A) 4 %; Neutrophils # (A) 6.6 k/uL (1.3-7.7); Neutrophils % (A) 80 %; Platelet Count 289 k/uL (150-450); RBC 4.75 m/uL (4.30-5.90); RDW 12.8 % (11.5-15.5); WBC 8.3 k/uL (3.8-10.6)
[2024-03-15 17:49] LABS: ALT 56 U/L (4-49); AST 42 U/L (17-59); African American GFR (CKD) 72 (>60 ml/min/1.73 sqM); Albumin 4.2 g/dL (3.5-5.0); Alkaline Phosphatase 101 U/L (38-126); Anion Gap 8 mmol/L; Blood Urea Nitrogen 21 mg/dL (9-20); Calcium 9.2 mg/dL (8.4-10.2); Carbon Dioxide 29 mmol/L (22-30); Chloride 103 mmol/L (98-107); Glucose 125 mg/dL (74-99); Non-African American GFR(CKD) 62 (>60 ml/min/1.73 sqM); Potassium 4.1 mmol/L (3.5-5.1); Sodium 140 mmol/L (137-145); Total Bilirubin 1.3 mg/dL (0.2-1.3); Total Protein 7.1 g/dL (6.3-8.2)
[2024-03-15] MEDS ORDERED: VANCOMYCIN IV PER PHARMACY 1 EACH MISC MISCELLANE PRN (20:02)
[2024-03-15] MEDS ORDERED: NALOXONE 0.4 MG/ML 1 ML VIAL IV PRN (20:03)
[2024-03-15] MEDS: VANCOMYCIN 1,500 MG in SODIUM CHLORIDE 0.9% 500 ML 500 ML IVPB STA (20:36)
[2024-03-15] MEDS: SODIUM CHLORIDE 0.9% 1,000 ML IV SCH (20:37)
[2024-03-16] MEDS ORDERED: VANCOMYCIN IV PER PHARMACY 1 EACH MISC MISCELLANE PRN (01:33)
--- NOTE | 2024-03-16 01:34 | P.HPIM ---
History of Present Illness H&P Date: 03/15/24 Patient is a 68-year-old male with no known PMH who presents to the emergency room with complaints of right lower extremity swelling and pain. The patient notes that he works as a industrial cleaning technician and may have scratched himself on his right rivas roughly 1 week ago. He noted gradually worsening swelling and redness for which she was seen in the emergency room this past 03/11. The patient was advised to be admitted for IV antibiotics but refused and opted for oral antibiotics including Keflex and Bactrim. The patient reports compliance with the medications but notes that his symptoms have gradually worsened. Reports 2 out of 10 right leg pain especially with movement. Denies paresthesias of the right leg. Denies experiencing fever or chills. Also denied chest pain, shortness of breath, nausea, vomiting, abdominal pain, diarrhea. Lower extremity venous Doppler as performed on 03/11 was negative. Laboratory evaluation from this visit revealed a WBC count of 8.3, hemoglobin 15.7, MCV one 1.2, BUN 21, creatinine 1.20, lactic acid 1.3, glucose 125. ED documentation reviewed and case discussed with ED provider. Review of systems: Pertinent positives and negatives as discussed in HPI, a complete review of systems was performed and all other systems are negative. Physical examination: Vital signs reviewed General: non toxic, no distress, appears at stated age, overweight Derm: Right foot swelling with right lower extremity swelling and erythema extending to the knee (area marked), warm Head: atraumatic, normocephalic, symmetric Eyes: EOMI, no lid lag, anicteric sclera, pupils equal round reactive to light ENT: Nose and ears atraumatic Neck: No cervical lymphadenopathy, trachea midline, supple Mouth: no lip lesion, mucus membranes moist Cardiovascular: S1S2 reg, no murmur, positive dorsalis pedis pulse bilateral, 1+ right lower extremity pitting edema Lungs: CTA bilateral, no rhonchi, no rales, no accessory muscle use Abdominal: soft, nontender to palpation, no guarding Ext: muscle strength 5 out of 5 in all 4 extremities grossly, no gross muscle atrophy, no contractures, Neuro: CN II-XI grossly intact, no gross focal neuro deficits Psych: Alert, oriented, appropriate affect Assessment: Right lower extremity cellulitis, failed outpatient treatment (Keflex and Bactrim) Imaging: Lower extremity venous Doppler as performed on 03/11 was negative. Data Review: Laboratory evaluation from this visit revealed a WBC count of 8.3, hemoglobin 15.7, MCV one 1.2, BUN 21, creatinine 1.20, lactic acid 1.3, glucose 125. Plan: Continue with vancomycin as dosed by pharmacy Infectious disease consulted DVT prophylaxis: Lovenox subcu The patient is admitted with an anticipated greater than 2 midnight stay for evaluation of right lower extremity cellulitis CODE STATUS: Full Code Discussed with: Patient Anticipated discharge place: Home Past Medical History Past Medical History: Deep Vein Thrombosis (DVT), Pneumonia, Thyroid Disorder History of Any Multi-Drug Resistant Organisms: None Reported Past Surgical History: Hernia Repair, Orthopedic Surgery, Tonsillectomy Additional Past Surgical History / Comment(s): partial thyroidectomy, knee surgery Past Anesthesia/Blood Transfusion Reactions: No Reported Reaction Past Psychological History: No Psychological Hx Reported Smoking Status: Current every day smoker Past Alcohol Use History: Daily Past Drug Use History: None Reported - Past Family History Father Family Medical History: Cancer Mother Family Medical History: COPD Medications and Allergies Home Medications Medication Instructions Recorded Confirmed Type Cephalexin [Keflex] 500 mg PO Q6HR #40 cap 03/11/24 Rx Naproxen Sodium [Aleve] 220 mg PO DAILY PRN 03/11/24 03/11/24 History Sulfamethox-Tmp 800-160Mg [Bactrim 1 each PO Q12HR #20 tab 03/11/24 Rx Ds] Allergies Allergy/AdvReac Type Severity Reaction Status Date / Time No Known Allergies Allergy Verified 03/15/24 16:38 Physical Exam Vitals: Vital Signs Temp Pulse Resp BP Pulse Ox 03/16/24 00:04 84 16 117/71 98 03/15/24 16:33 97.6 F 90 18 119/74 99 Intake and Output 03/15/24 03/15/24 03/16/24 14:59 22:59 06:59 Other: Weight 79.379 kg Results CBC & Chem 7: 03/15/24 17:23 03/15/24 17:23 Labs: Abnormal Lab Results - Last 24 Hours (Table) 03/15/24 03/15/24 Range/Units 17:23 17:23 MCV 101.2 H (80.0-100.0) fL BUN 21 H (9-20) mg/dL Glucose 125 H (74-99) mg/dL ALT 56 H (4-49) U/L
[2024-03-16] MEDS: ENOXAPARIN 40 MG/0.4 ML SYRINGE SQ SCH (08:23)
[2024-03-16] MEDS ORDERED: VANCOMYCIN 1,500 MG in SODIUM CHLORIDE 0.9% 500 ML 500 ML IVPB SCH (13:00)
--- NOTE | 2024-03-16 13:51 | P.PN ---
Subjective Progress Note Date: 03/16/24 Ongoing cellulitis of the RLE, improving, but still quite significant. Pain is improved. Gen: In NAD, non-toxic HEENT: normocephalic, atraumatic, hearing acuity is intant, mucous membranes moist CVS: perfusing all extremities well, no pitting edema, Respiratory: symmetric chest expansion, no accessory muscle use, GI: soft, NTTP, ND, : no suprapubic tenderness, no CVA tenderness MSK/Derm: no rashes, cyanosis Neuro: CN II-XII intact, no motor weakness, Psych: cooperative, euthymic mood, judgment and insight is intact Hospital Course: Patient is a 68-year-old male with no known PMH who presents to the emergency room with complaints of right lower extremity swelling and pain. Lower extremi ty venous Doppler as performed on 03/11 was negative. Laboratory evaluation from this visit revealed a WBC count of 8.3, hemoglobin 15.7, MCV one 1.2, BUN 21, creatinine 1.20, lactic acid 1.3, glucose 125. Assessment/plan: Right lower extremity cellulitis, failed outpatient treatment (Keflex and Bactrim) -Continue with vancomycin as dosed by pharmacy -Infectious disease consulted DVT prophylaxis: Lovenox subcu CODE STATUS: Full Code Discussed with: Patient Anticipated discharge place: Home Objective - Vital Signs Vital signs: Vital Signs Temp 97.6 F 03/15/24 16:33 Pulse 80 03/16/24 08:15 Resp 18 03/16/24 08:15 BP 107/62 03/16/24 08:15 Pulse Ox 96 03/16/24 08:15 FiO2 Intake & Output 03/15/24 03/16/24 03/16/24 18:59 06:59 18:59 Weight 79.379 kg 79.379 kg - Labs CBC & Chem 7: 03/15/24 17:23 03/15/24 17:23 Labs: Abnormal Lab Results - Last 24 Hours (Table) 03/15/24 03/15/24 Range/Units 17:23 17:23 MCV 101.2 H (80.0-100.0) fL BUN 21 H (9-20) mg/dL Glucose 125 H (74-99) mg/dL ALT 56 H (4-49) U/L
[2024-03-16] MEDS: VANCOMYCIN 1,250 MG in SODIUM CHLORIDE 0.9% 250 ML IVPB SCH (14:01)
[2024-03-16] MEDS: NYSTATIN 100,000UNIT/GM CREAM 30 GM TUBE TOPICAL SCH (15:26)
[2024-03-16] MEDS: MORPHINE SULFATE 4 MG/ML SYRINGE IV PRN (16:24)
[2024-03-16] MEDS: ACETAMINOPHEN TAB 325 MG TAB PO PRN (21:45)
--- NOTE | 2024-03-16 21:52 | P.CONS ---
History of Present Illness - Reason for Consult Consult date: 03/16/24 Cellulitis, failed outpatient Requesting physician: Dannie Obrien - Chief Complaint Right lower extremity swelling and redness x 4 days - History of Present Illness Patient is a 68-year-old male with a past medical history significant for pneumonia hypothyroidism DVT current everyday smoker presenting to the hospital for evaluation of right lower extremity swelling and redness that has been going on since about 4 days before presentation to the hospital patient denies any history of any trauma has been complaining of diffuse swelling and redness involving mostly right lower extremity has been complaining of pain especially when he walks on it which is mostly throbbing about 6-8 out of 10 without radiation with associated diffuse swelling redness did not have any open wound or any blisters did have some chills patient mention has been seeing anterior in outpatient setting with oral Keflex and Bactrim DS however he did not have any improvement and the patient subsequently presented to hospital with worsening swelling redness has been diagnosed with cellulitis he was started on vancomycin infectious disease was consulted for further management of antibiotic therapy patient on presentation to hospital was afebrile and no fever have been recorded subsequently patient was not tachycardic hypotensive or hypoxic he did have white to 8.3, creatinine is 1.20 ALT was mildly elevated Review of Systems Positive point and negatives has been mentioned in the HPI, complete review of systems was performed and all other systems are negative Past Medical History Past Medical History: Deep Vein Thrombosis (DVT), Pneumonia, Thyroid Disorder History of Any Multi-Drug Resistant Organisms: None Reported Past Surgical History: Hernia Repair, Orthopedic Surgery, Tonsillectomy Additional Past Surgical History / Comment(s): partial thyroidectomy, knee surgery Past Anesthesia/Blood Transfusion Reactions: No Reported Reaction Past Psychological History: No Psychological Hx Reported Smoking Status: Current every day smoker Past Alcohol Use History: Daily Past Drug Use History: None Reported - Past Family History Father Family Medical History: Cancer Mother Family Medical History: COPD Medications and Allergies Home Medications Medication Instructions Recorded Confirmed Type Cephalexin [Keflex] 500 mg PO Q6HR #40 cap 03/11/24 03/16/24 Rx Naproxen Sodium [Aleve] 220 mg PO DAILY PRN 03/11/24 03/16/24 History Sulfamethox-Tmp 800-160Mg [Bactrim 1 tab PO Q12HR 03/16/24 03/16/24 History Ds] Allergies Allergy/AdvReac Type Severity Reaction Status Date / Time No Known Allergies Allergy Verified 03/16/24 08:27 Physical Exam Vitals: Vital Signs Temp Pulse Resp BP Pulse Ox 03/16/24 08:15 80 18 107/62 96 03/16/24 04:41 76 18 105/60 97 03/16/24 00:04 84 16 117/71 98 03/15/24 16:33 97.6 F 90 18 119/74 99 Intake and Output 03/15/24 03/16/24 03/16/24 22:59 06:59 14:59 Other: Weight 79.379 kg GENERAL DESCRIPTION: Elderly male lying in bed, no distress. No tachypnea or accessory muscle of respiration use. HEENT: Shows Pallor , no scleral icterus. Oral mucous membrane is dry. No pharyngeal erythema or thrush NECK: Trachea central, no thyromegaly. LUNGS: Unlabored breathing. Clear to auscultation anteriorly. No wheeze or crackle. HEART: S1, S2, regular rate and rhythm. No loud murmur ABDOMEN: Soft, no tenderness , guarding or rigidity, no organomegaly EXTREMITIES: Right lower extremity diffuse swelling redness which is warm to touch evidence of athlete's foot SKIN: No rash, no masses palpable. NEUROLOGICAL: The patient is awake, alert, oriented x3, mood and affect normal. Results CBC & Chem 7: 03/17/24 06:05 03/17/24 06:05 Labs: Abnormal Lab Results - Last 24 Hours (Table) 03/15/24 03/15/24 Range/Units 17:23 17:23 MCV 101.2 H (80.0-100.0) fL BUN 21 H (9-20) mg/dL Glucose 125 H (74-99) mg/dL ALT 56 H (4-49) U/L Assessment and Plan (1) Athletes foot Current Visit: Yes Status: Acute Code(s): B35.3 - TINEA PEDIS SNOMED Code(s): 6958991 (2) Failure of outpatient treatment Current Visit: Yes Status: Acute Code(s): Z78.9 - OTHER SPECIFIED HEALTH STATUS SNOMED Code(s): 649835755 (3) Cellulitis of right lower extremity Current Visit: No Status: Acute Code(s): L03.115 - CELLULITIS OF RIGHT LOWER LIMB SNOMED Code(s): 14712703645279308 Plan: 1patient presented to hospital with acute right lower extremity cellulitis in this patient who did have evidence of athlete's foot with diffuse swelling redness no evidence of any pustule likely streptococcal disease failing outpatient Keflex and Bactrim more likely related to burden of disease 2-we will discontinue vancomycin 3-marked the area of the redness and apply Jameel wrap from just above the toe to below the knee 4-we will start cefazolin 2 g every 8hr along with nystatin cream in between the toes We will follow on clinical condition and cultures to further adjust medication if needed Thank you for this consultation we will follow the patient along with you Dictation was produced using [email or web address] dictation software. please excuse any grammatical, word or spelling errors. Time with Patient: Greater than 30
[2024-03-17 06:33] LABS: Basophils # (A) 0.1 k/uL (0-0.2); Basophils % (A) 1 %; Eosinophils # (A) 0.3 k/uL (0-0.7); Eosinophils % (A) 4 %; HCT 45.8 % (39.0-53.0); HGB 14.6 gm/dL (13.0-17.5); Hypochromasia Slight; Lymphocytes # (A) 1.3 k/uL (1.0-4.8); Lymphocytes % (A) 21 %; MCH 33.5 pg (25.0-35.0); MCHC 31.8 g/dL (31.0-37.0); MCV 105.2 fL (80.0-100.0); Macrocytosis Slight; Mean Platelet Volume 7.3; Monocytes # (A) 0.4 k/uL (0-1.0); Monocytes % (A) 7 %; Neutrophils # (A) 4.1 k/uL (1.3-7.7); Neutrophils % (A) 64 %; Platelet Count 313 k/uL (150-450); RBC 4.35 m/uL (4.30-5.90); RDW 12.8 % (11.5-15.5); WBC 6.4 k/uL (3.8-10.6)
[2024-03-17 06:51] LABS: African American GFR (CKD) 89 (>60 ml/min/1.73 sqM); Anion Gap 6 mmol/L; Blood Urea Nitrogen 17 mg/dL (9-20); Calcium 8.6 mg/dL (8.4-10.2); Carbon Dioxide 26 mmol/L (22-30); Chloride 106 mmol/L (98-107); Glucose 102 mg/dL (74-99); Magnesium 2.1 mg/dL (1.6-2.3); Non-African American GFR(CKD) 77 (>60 ml/min/1.73 sqM); Potassium 4.4 mmol/L (3.5-5.1); Sodium 138 mmol/L (137-145)
--- NOTE | 2024-03-17 13:28 | P.PN ---
Subjective Progress Note Date: 03/17/24 Hospital Course: 68-year-old male with no significant past medical history presenting with right lower extremity swelling and pain. 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 Failed outpatient antibiotic therapy. Lower extremity venous Doppler as performed on 03/11 was negative. Laboratory evaluation from this visit revealed a WBC count of 8.3, hemoglobin 15.7, MCV one 1.2, BUN 21, creatinine 1.20, lactic acid 1.3, glucose 125. Vital signs within normal limits. Patient started on IV cefazolin. ID was also consulted. Subjective: Patient seen and examined at bedside. No acute events overnight. Claims that right lower extremity is improving. Able to ambulate. Pertinent positives and negatives as discussed above, a complete review of systems was performed and all other systems are negative. Vitals Signs Reviewed. General: Nontoxic, no distress, appears at stated age Derm: Warm, dry, significant right lower extremity erythema, edema, and tenderness to palpation, clear demarcation Head: Atraumatic, normocephalic, symmetric Eyes: EOMI, no lid lag, anicteric sclera Mouth: No lip lesion, mucus membranes moist Cardiovascular: S1S2 reg, no murmur Lungs: CTA bilateral, no rhonchi, no rales, no accessory muscle use Abdominal: Soft, nontender to palpation, no guarding, no appreciable organomegal y Ext: No gross muscle atrophy, no edema, no contractures Neuro: CN II-XI grossly intact, no focal neuro deficits Psych: Alert, oriented, appropriate affect Data Reviewed Today: Pertinent Labs: WBC 6.4, creatinine 1.01, magnesium 2.1 Imaging: No new imaging. Assessment and Plan: Active: Cellulitis, failed outpatient therapy -Continue cefazolin 2 g IV every 8 hours -Pain control with oral Tylenol as needed, IV morphine as needed, monitor for sedation -ID following -Possible discharge tomorrow if continues to improve Athlete's foot -Continue nystatin cream twice daily topical DVT ppx: Lovenox Code status: Full code Anticipated discharge place: Pending clinical course Anticipated discharge time: Pending clinical course Objective - Vital Signs Vital signs: Vital Signs Temp 97.7 F 03/17/24 08:00 Pulse 82 03/17/24 08:00 Resp 14 03/17/24 08:00 BP 118/72 03/17/24 08:00 Pulse Ox 98 03/17/24 08:00 FiO2 Intake & Output 03/16/24 03/17/24 03/17/24 18:59 06:59 18:59 Intake Total 1820 Output Total 350 Balance -350 1820 Weight 79.379 kg Intake: Intake, IV Titration 320 Amount Sodium Chloride 0.9% 1, 220 000 ml @ 20 mls/hr IV . Q24H MAY Rx#:[id number] ceFAZolin 2 gm In Sodium 100 Chloride 0.9% 50 ml @ 100 mls/hr IVPB Q8H MAY Rx#: [id number] Oral 1500 Output: Urine 350 Other: Voiding Method Urinal Urinal - Labs CBC & Chem 7: 03/17/24 06:05 03/17/24 06:05 Labs: Abnormal Lab Results - Last 24 Hours (Table) 03/17/24 03/17/24 Range/Units 06:05 06:05 MCV 105.2 H (80.0-100.0) fL Glucose 102 H (74-99) mg/dL
--- NOTE | 2024-03-17 17:11 | P.PN ---
Subjective Progress Note Date: 03/17/24 Principal diagnosis: Reason for follow-up is right lower extremity cellulitis Patient is a 68-year-old male with a past medical history significant for pneumonia hypothyroidism DVT current everyday smoker presenting to the hospital for evaluation of right lower extremity swelling and redness, patient be diagnosed with left right lower extremity cellulitis failing outpatient oral antibiotic therapy On today's evaluation that is 03/17/2024,the patient remains to be afebrile, patient is on room air not requiring supplemental oxygen and denies any shortness of breath no chest pain or cough.Patient denies having any nausea or vomiting, no abdominal pain and no diarrhea has been reported patient mention decreasing the pain to the right lower extremity. The patient white count 6.4, creatinine 1.01 Objective - Vital Signs Vital signs: Vital Signs Temp 98.2 F 03/17/24 14:00 Pulse 79 03/17/24 14:00 Resp 16 03/17/24 14:00 BP 126/79 03/17/24 14:00 Pulse Ox 99 03/17/24 14:00 FiO2 Intake & Output 03/16/24 03/17/24 03/17/24 18:59 06:59 18:59 Intake Total 1820 Output Total 350 Balance -350 1820 Weight 79.379 kg Intake: Intake, IV Titration 320 Amount Sodium Chloride 0.9% 1, 220 000 ml @ 20 mls/hr IV . Q24H MAY Rx#:[id number] ceFAZolin 2 gm In Sodium 100 Chloride 0.9% 50 ml @ 100 mls/hr IVPB Q8H MAY Rx#: [id number] Oral 1500 Output: Urine 350 Other: Voiding Method Urinal Urinal - Exam GENERAL DESCRIPTION: An elderly male lying in bed in no distress RESPIRATORY SYSTEM: Unlabored breathing , decreased breath sounds at bases HEART: S1 S2 regular rate and rhythm , ABDOMEN: Soft , no tenderness EXTREMITIES: Right lower extremity swelling redness slightly decreased no blister - Labs CBC & Chem 7: 03/17/24 06:05 03/17/24 06:05 Labs: Abnormal Lab Results - Last 24 Hours (Table) 03/17/24 03/17/24 Range/Units 06:05 06:05 MCV 105.2 H (80.0-100.0) fL Glucose 102 H (74-99) mg/dL Assessment and Plan (1) Athletes foot Current Visit: Yes Status: Acute Code(s): B35.3 - TINEA PEDIS SNOMED Code(s): 9109727 (2) Failure of outpatient treatment Current Visit: Yes Status: Acute Code(s): Z78.9 - OTHER SPECIFIED HEALTH STATUS SNOMED Code(s): 268760486 (3) Cellulitis of right lower extremity Current Visit: No Status: Acute Code(s): L03.115 - CELLULITIS OF RIGHT LOWER LIMB SNOMED Code(s): 69083578811670346 Plan: 1patient presented to hospital with acute right lower extremity cellulitis in this patient who did have evidence of athlete's foot with diffuse swelling redness no evidence of any pustule likely streptococcal disease failing outpatient Keflex and Bactrim more likely related to burden of disease 2-patient has been advised to apply Jameel wrap for compression to keep the swelling down 3patient to continue with the cefazolin 2 g every 8 hours along with the nystatin cream and pain to the toe Dictation was produced using [employer] dictation software. please excuse any grammatical, word or spelling errors.
[2024-03-18 08:53] VITALS: BP 122/80; PULSE 83; RESP 17; TEMP 97.8
--- NOTE | 2024-03-18 12:29 | P.DS ---
Providers Date of admission: 03/15/24 20:05 Expected date of discharge: 03/18/24 Attending physician: Amy Guillory MD Consults: 03/15/24 20:03 Consult Physician Routine Consulting Provider: Awa Cummings Consult Reason/Comments: cellulitis, failed outpatient tx Do you want consulting provider notified?: Yes Primary care physician: Chris Velez MD Hospital Course: Discharge Diagnosis: Right lower extremity cellulitis, failed outpatient therapy Athlete's foot Hospital Course: 68-year-old male with no significant past medical history presenting with right lower extremity swelling and pain. 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 Failed outpatient antibiotic therapy. Lower extremity venous Doppler as performed on 03/11 was negative. Laboratory evaluation from this visit revealed a WBC count of 8.3, hemoglobin 15.7, MCV one 1.2, BUN 21, creatinine 1.20, lactic acid 1.3, glucose 125. Vital signs within normal limits. Patient started on IV cefazolin. ID was also consulted. Cellulitis improved. Patient being discharged on Keflex 500 mg every 6 hours for 10 days. Follow-up outpatient with PCP. Patient seen and examined at bedside. Vital signs reviewed and stable. General: Nontoxic, no distress, appears at stated age Derm: Warm, dry, right lower extremity erythema, with some edema, no tenderness to palpation Head: Atraumatic, normocephalic, symmetric Eyes: EOMI, no lid lag, anicteric sclera Mouth: No lip lesion, mucus membranes moist Cardiovascular: S1S2 reg, no murmur Lungs: CTA bilateral, no rhonchi, no rales, no accessory muscle use Abdominal: Soft, nontender to palpation, no guarding, no appreciable organomegaly Ext: No gross muscle atrophy, no edema, no contractures Neuro: CN II-XI grossly intact, no focal neuro deficits Psych: Alert, oriented, appropriate affect A total of 32 minutes of time were spent preparing this complex discharge summary. Patient was discharged on 03/18/2024 at 1147. Patient Condition at Discharge: Stable Plan - Discharge Summary Discharge Rx Participant: Yes New Discharge Prescriptions: New Nystatin 100,000Unit/gm Cream [Mycostatin Cream] 1 applic TOPICAL BID #1 each Continue Naproxen Sodium [Aleve] 220 mg PO DAILY PRN PRN Reason: Pain Cephalexin [Keflex] 500 mg PO Q6HR #40 cap Discontinued Sulfamethox-Tmp 800-160Mg [Bactrim Ds] 1 tab PO Q12HR Discharge Medication List Naproxen Sodium [Aleve] 220 mg PO DAILY PRN 03/11/24 [History] Cephalexin [Keflex] 500 mg PO Q6HR #40 cap 03/18/24 [Rx] Nystatin 100,000Unit/gm Cream [Mycostatin Cream] 1 applic TOPICAL BID #1 each 03/18/24 [Rx] Follow up Appointment(s)/Referral(s): Chris Velez MD [Primary Care Provider] - 1-2 days Patient Instructions/Handouts: Athlete's Foot (ED), Cellulitis (ED) Activity/Diet/Wound Care/Special Instructions: Please see your PCP. Discharge Disposition: HOME SELF-CARE
--- NOTE | 2024-03-18 15:09 | P.PN ---
Subjective Progress Note Date: 03/18/24 Principal diagnosis: Reason for follow-up is right lower extremity cellulitis Patient is a 68-year-old male with a past medical history significant for pneumonia hypothyroidism DVT current everyday smoker presenting to the hospital for evaluation of right lower extremity swelling and redness, patient be diagnosed with left right lower extremity cellulitis failing outpatient oral antibiotic therapy On today's evaluation that is 03/18/2024, the patient continues to be afebrile, the patient is on room air and breathing comfortably, the Pt denies having any chest pain or cough, the patient denies having any abdominal pain no vomiting or any diarrhea the patient have right lower extremity swelling redness and pain has decreased intensity patient is feeling better wants to go home. No new lab has been obtained today Objective - Vital Signs Vital signs: Vital Signs Temp 97.8 F 03/18/24 08:00 Pulse 83 03/18/24 08:00 Resp 17 03/18/24 08:00 BP 122/80 03/18/24 08:00 Pulse Ox 97 03/18/24 08:00 FiO2 Intake & Output 03/17/24 03/18/24 03/18/24 18:59 06:59 18:59 Output Total 400 Balance -400 Output: Urine 400 Other: Voiding Method Urinal Urinal # Voids 3 - Exam GENERAL DESCRIPTION: An elderly male lying in bed in no distress RESPIRATORY SYSTEM: Unlabored breathing , decreased breath sounds at bases HEART: S1 S2 regular rate and rhythm , ABDOMEN: Soft , no tenderness EXTREMITIES: Right lower extremity swelling redness slightly decreased no blister - Labs CBC & Chem 7: 03/17/24 06:05 03/17/24 06:05 Assessment and Plan (1) Athletes foot Status: Acute Code(s): B35.3 - TINEA PEDIS SNOMED Code(s): 1228990 (2) Failure of outpatient treatment Status: Acute Code(s): Z78.9 - OTHER SPECIFIED HEALTH STATUS SNOMED Code(s): 632457392 (3) Cellulitis of right lower extremity Status: Acute Code(s): L03.115 - CELLULITIS OF RIGHT LOWER LIMB SNOMED Code(s): 27028538524115579 Plan: 1patient presented to hospital with acute right lower extremity cellulitis in this patient who did have evidence of athlete's foot with diffuse swelling redness no evidence of any pustule likely streptococcal disease failing outpatient Keflex and Bactrim more likely related to burden of disease 2-patient has been advised to apply Jameel wrap for compression to keep the swelling down 3patient to with the nystatin cream inbetween the toe and will be able to finish therapy with oral Keflex 500 mg every 6 hours for 10 days and close ou tpatient follow-up discussed with the admitting physician working on discharge Dictation was produced using [employer] dictation software. please excuse any grammatical, word or spelling errors. Time with Patient: Less than 30
== END 2024-03-18 14:01 | disposition home or self-care (01) ==
LOC: EC 16:14 → INTOOBSV 20:05 → 4SSUR 20:05 → 1SOBS 03-16 10:17
PROVIDERS: ADMIT Internal Medicine; ATTEND Internal Medicine
DX: L03.115 Cellulitis of right lower limb (principal); B35.3 Tinea pedis; F17.200 Nicotine dependence, unspecified, uncomplicated; Z86.718 Personal history of other venous thrombosis and embolism
CPT/HCPCS: 96366 ×3; 96367; 96372 ×2; 96375; 96376; 96365; 99284; 36415; 80053; 80048; 83605; 83735; 85025 ×2; G0378 ×4; J3370; J2270 ×2; J0690 ×3; J1650 ×2

== ENCOUNTER → 2024-12-16 | Outpatient (CLI) | payer MEDICARE ==
--- NOTE | 2024-12-16 21:25 | US ---
EXAMINATION TYPE: US thyroid st tissue head/neck DATE OF EXAM: 12/16/2024 COMPARISON: NONE CLINICAL INDICATION: Male, 69 years old with history of E04.9 NONTOXIC GOITER, UNSPECIFIED; History o f right thyroidectomy TECHNIQUE: Grayscale and color Doppler imaging of the thyroid gland. FINDINGS: GLAND SIZE: Left Lobe: 4.1 x 1.4 x 1.7 cm Overall Parenchyma: homogeneous Isthmus Thickness: 0.5 cm NODULES RIGHT: Surgically absent LEFT: # of nodules measured on left: 1 1. 1.1 X 0.7 x 0.9 cm, lower lateral, solid or almost completely solid, hypoechoic nodule, which is wider than tall, with smooth margins, without echogenic foci. TR 4 Prior size: no previous ISTHMUS: # of nodules measured in the isthmus: 0 Bilateral neck scanned, no evidence of lymphadenopathy. IMPRESSION: Moderately suspicious nodule left lobe thyroid. Follow-up exam in 1 year Highest TI-RADS level nodule reported: 2017 ACR TI-RADS LEVEL: TI-RADS 4 - Moderately Suspicious: Follow if > 1 cm, FNA if > 1.5 cm TI-RADS assessment score and recommendation for follow-up based on appropriate scoring and treatment protocols. TR1 Benign No FNA TR2 Not suspicious No FNA TR3: If nodule size is ? 2.5 cm, FNA is recommended. If nodule size is ? 1.5 cm, follow-up imaging at 1, 3, and 5 years is recommended. TR4: If nodule size is ? 1.5 cm, FNA is recommended. If nodule size is ? 1.0 cm, follow-up imaging at 1, 2, 3, and 5 years is recommended. TR5: If nodule size is ? 1.0 cm, FNA is recommended. If nodule size is ? 0.5 cm, annual follow-up for up to 5 years is recommended. TR 1 thyroid nodules have a 0.3 % risk of malignancy. TR 2 thyroid nodules have a 1.5 % risk of malignancy. TR 3 thyroid nodules have a 4.8 % risk of malignancy. TR 4 thyroid nodules have a 9.1 % risk of malignancy. TR 5 thyroid nodules have a 35 % risk of malignancy. [email or web address], , 12/16/2024 9:23 PM
== END | disposition home or self-care (01) ==
LOC: RADUSWWP 10:41
PROVIDERS: ATTEND Family Medicine
DX: E89.0 Postprocedural hypothyroidism (principal); E04.2 Nontoxic multinodular goiter
CPT/HCPCS: 76536